=== PATIENT | female | born 2000 | race Caucasian/White ===

== ENCOUNTER → 2019-12-15 | Emergency (ER) | payer OTHER ==
[~2019-12-15] VITALS: Ht 175.3 cm; Wt 68.2 kg
[~2019-12-15] MED LIST: LORazepam 1 MG tablet PO ONE
[2019-12-15 01:23] LABS: BASOPHILS % (AUTO) 0.4 % (0-1); EOSINOPHILS # (AUTO) 0.1 X10'3 (0-0.9); EOSINOPHILS % (AUTO) 1.7 % (0-6); HEMATOCRIT 39.2 % (35.0-45.0); HEMOGLOBIN 13.6 g/dl (12.0-16.0); LYMPHOCYTES % (AUTO) 31.1 % (21-51); MEAN CORPUSCULAR HEMOGLOBIN 31.9 PG (27.0-31.0); MEAN CORPUSCULAR HGB CONC 34.7 g/dL (33.0-36.5); MEAN PLATELET VOLUME 8.1 FL (7.4-10.4); MONOCYTES # (AUTO) 0.4 X10'3 (0-0.9); MONOCYTES % (AUTO) 6.7 % (2-12); NEUTROPHILS # (AUTO) 3.9 X10'3 (1.8-7.7); NEUTROPHILS % (AUTO) 60.1 % (42-75); PLATELET COUNT 303 X10'3 (140-440); RED BLOOD COUNT 4.26 X10'6 (4.20-5.60); RED CELL DISTRIBUTION WIDTH 12.5 % (11.5-14.5); WHITE BLOOD COUNT 6.5 X10'3 (4.5-11.0)
[2019-12-15 01:38] LABS: ALANINE AMINOTRANSFERASE 17 U/L (12-78); ALBUMIN 4.2 G/DL (3.4-5.0); ALBUMIN/GLOBULIN RATIO 1.2 (1.1-1.5); ALKALINE PHOSPHATASE 74 IU/L (46-116); ANION GAP 9 (8-16); ASPARTATE AMINO TRANSFERASE 14 U/L (10-37); BILIRUBIN,TOTAL 0.4 MG/DL (0.1-1.0); BLOOD UREA NITROGEN 11 MG/DL (7-18); BUN/CREATININE RATIO 12.8 (6.6-38.0); CHLORIDE 106 MMOL/L (99-107); CREATININE 0.86 MG/DL (0.40-0.90); GLUCOSE 117 MG/DL (70-104); POTASSIUM 3.7 MMOL/L (3.5-5.1); SODIUM 142 MMOL/L (135-145); TOTAL CARBON DIOXIDE 27.2 MMOL/L (24-32); TOTAL PROTEIN 7.7 G/DL (6.4-8.2); eGFR 83 ML/MIN
[2019-12-15 01:43] LABS: D-DIMER < 0.19 MG/L FEU (0-0.50)
[2019-12-15 02:19] VITALS: BP 133/80
== END | disposition home or self-care (01) ==
LOC: ER 00:27
DX: R00.0 Tachycardia, unspecified (principal); R06.02 Shortness of breath
CPT/HCPCS: 36415; 71045; 80053; 83735; 83880; 84443; 84484; 85025; 85379; 93005; 99285

== ENCOUNTER 2020-12-03 13:50 | Outpatient (CLI) | payer BC ==
[2020-12-03 14:59] LABS: BASOPHILS % (AUTO) 0.2 % (0-1); EOSINOPHILS # (AUTO) 0.1 X10'3 (0-0.9); HEMATOCRIT 44.2 % (35.0-45.0); HEMOGLOBIN 14.7 g/dl (12.0-16.0); LYMPHOCYTES % (AUTO) 22.4 % (21-51); MEAN CORPUSCULAR HEMOGLOBIN 31.1 PG (27.0-31.0); MEAN CORPUSCULAR HGB CONC 33.2 g/dL (33.0-36.5); MEAN CORPUSCULAR VOLUME 93.7 FL (78-98); MEAN PLATELET VOLUME 8.7 FL (7.4-10.4); MONOCYTES # (AUTO) 0.5 X10'3 (0-0.9); MONOCYTES % (AUTO) 5.9 % (2-12); NEUTROPHILS # (AUTO) 6.4 X10'3 (1.8-7.7); NEUTROPHILS % (AUTO) 70.5 % (42-75); PLATELET COUNT 305 X10'3 (140-440); RED BLOOD COUNT 4.72 X10'6 (4.20-5.60); RED CELL DISTRIBUTION WIDTH 12.2 % (11.5-14.5); WHITE BLOOD COUNT 9.1 X10'3 (4.5-11.0)
[2020-12-03 15:06] LABS: HEMOGLOBIN A1C 5.6 % (4.5-6.2)
[2020-12-03 15:23] LABS: ALANINE AMINOTRANSFERASE 17 U/L (12-78); ALBUMIN 4.1 G/DL (3.4-5.0); ALBUMIN/GLOBULIN RATIO 1.1 (1.1-1.5); ALKALINE PHOSPHATASE 84 IU/L (46-116); ANION GAP 10 (8-16); ASPARTATE AMINO TRANSFERASE 13 U/L (10-37); BILIRUBIN,TOTAL 0.3 MG/DL (0.1-1.0); BLOOD UREA NITROGEN 7 MG/DL (7-18); BUN/CREATININE RATIO 8.1 (6.6-38.0); CALCIUM 9.1 MG/DL (8.5-10.1); CHLORIDE 106 MMOL/L (99-107); CHOL/HDL RATIO 2.1 (0.00-4.99); CHOLESTEROL 175 MG/DL (0-200); CREATININE 0.86 MG/DL (0.40-0.90); GLUCOSE 98 MG/DL (70-104); HDL CHOLESTEROL 84 MG/DL (35-60); LDL CHOLESTEROL 76 MG/DL (50-100); POTASSIUM 3.8 MMOL/L (3.5-5.1); SODIUM 143 MMOL/L (135-145); TOTAL CARBON DIOXIDE 27.3 MMOL/L (24-32); TOTAL PROTEIN 7.8 G/DL (6.4-8.2); TRIGLYCERIDES 77 MG/DL (20-135); eGFR 83 ML/MIN
[2020-12-05 11:18] LABS: LUTEINIZING HORMONE 11.2 mIU/mL (.); THYROXINE (T4) 9.5 ug/dL (4.5-12.0)
[2020-12-06 09:18] LABS: CLARITY,URINE CLEAR (Clear); COLOR,URINE YELLOW (Yellow); GLUCOSE, URINE NEGATIVE (Neg); KETONES,URINE NEGATIVE (Neg); LEUKOCYTE ESTERASE ,URINE NEGATIVE (Neg); NITRITES, URINE NEGATIVE (Neg); OCCULT BLOOD,URINE NEGATIVE (Neg); PROTEIN,URINE NEGATIVE (Neg); UA COLLECTION TYPE NON-SPECIFIED; UROBILINOGEN,URINE 0.2 E.U/dL (0.2-1.0)
[2020-12-09 08:36] LABS: TESTOSTERONE, FREE, DIRECT 2.2 pg/mL (0.0-4.2)
== END 2020-12-03 23:59 | disposition home or self-care (01) ==
LOC: LAB 13:50
PROVIDERS: ATTEND Family Medicine
DX: Z00.01 Encounter for general adult medical examination with abnormal findings (principal); E28.2 Polycystic ovarian syndrome; Z76.89 Persons encountering health services in other specified circumstances
CPT/HCPCS: 36415; 80053; 80061; 81003; 83001; 83002; 83036; 84402; 84403; 84436; 84443; 85025

== ENCOUNTER 2021-06-12 09:45 | Outpatient (CLI) | payer BC | END 2021-06-12 23:59 | disposition home or self-care (01) | LOC: RAD 09:45 | PROVIDERS: ATTEND Family Medicine | DX: N85.8 Other specified noninflammatory disorders of uterus (principal); E28.2 Polycystic ovarian syndrome | CPT/HCPCS: 76830; 76856; 93976 ==

== ENCOUNTER 2021-12-18 14:40 | Outpatient (CLI) | payer BC | END 2021-12-18 23:59 | disposition home or self-care (01) | LOC: RAD 14:40 | PROVIDERS: ATTEND Physician Assistant | DX: R09.81 Nasal congestion (principal); M95.0 Acquired deformity of nose; J34.89 Other specified disorders of nose and nasal sinuses | CPT/HCPCS: 70486 ==

== ENCOUNTER 2022-02-18 16:54 | Emergency (ER) | payer BC ==
[~2022-02-18] VITALS: Ht 175.3 cm; Wt 68.2 kg
[2022-02-18] MEDS ORDERED: bacitracin 15gm ointment TP ONE (17:00)
[2022-02-18] MEDS ORDERED: LIDOcaine 1% W/epiNEPHrine 1:200,000 10ml vial IJ ONE (17:00)
[2022-02-18 17:03] VITALS: BP 144/105
[2022-02-18] MEDS ORDERED: LIDOCAINE 1%/EPI 1:100,000 inj. 10 ML multi-dose vial IJ ONE (17:10)
== END 2022-02-18 17:47 | disposition home or self-care (01) ==
LOC: ER 16:55
DX: S01.112A Laceration without foreign body of left eyelid and periocular area, initial encounter (principal); X58.XXXA Exposure to other specified factors, initial encounter; Y93.89 Activity, other specified; Y92.89 Other specified places as the place of occurrence of the external cause; Y99.8 Other external cause status
CPT/HCPCS: 12011; 99282; A6449

== ENCOUNTER 2022-07-14 07:00 | Emergency (ER) | payer BC ==
[~2022-07-14] VITALS: Ht 175.3 cm; Wt 70.0 kg
[~2022-07-14 07:00] MED LIST changes: +ASCO100031 PO; +DESO1TAB PO; +ESCI5TAB PO; +ISOT30CA PO; -LORazepam 1 MG tablet PO ONE; +OMEG-5 PO; +ZINC50CA2 PO
[2022-07-14 07:03] VITALS: BP 139/88
[2022-07-14] MEDS ORDERED: dexamethasone sod phosphate 10mg/ml inj IM STA (07:20)
[2022-07-14] MEDS ORDERED: CLIN150C2 PO (07:23)
== END 2022-07-14 07:35 | disposition home or self-care (01) ==
LOC: ER 07:00
DX: J02.0 Streptococcal pharyngitis (principal); Z88.0 Allergy status to penicillin
CPT/HCPCS: 96372; 99283; J1100

== ENCOUNTER 2024-01-18 17:15 | Emergency (ER) | payer BC ==
[~2024-01-18] VITALS: Ht 175.3 cm; Wt 74.9 kg
[2024-01-18 17:27] VITALS: TEMP 99.4
[2024-01-18 17:49] LABS: BASOPHILS % (AUTO) 0.3 % (0-1); EOSINOPHILS # (AUTO) 0.1 X10'3 (0-0.9); EOSINOPHILS % (AUTO) 1.8 % (0-6); HEMATOCRIT 42.3 % (35.0-45.0); HEMOGLOBIN 14.2 g/dl (12.0-16.0); LYMPHOCYTES # (AUTO) 2.6 X10'3 (1.1-4.8); LYMPHOCYTES % (AUTO) 45.4 % (21-51); MEAN CORPUSCULAR HEMOGLOBIN 30.6 PG (27.0-31.0); MEAN CORPUSCULAR HGB CONC 33.5 g/dL (33.0-36.5); MEAN CORPUSCULAR VOLUME 91.5 FL (78-98); MEAN PLATELET VOLUME 8.5 FL (7.4-10.4); MONOCYTES # (AUTO) 0.4 X10'3 (0-0.9); MONOCYTES % (AUTO) 6.5 % (2-12); NEUTROPHILS # (AUTO) 2.7 X10'3 (1.8-7.7); PLATELET COUNT 336 X10'3 (140-440); RED BLOOD COUNT 4.63 X10'6 (4.20-5.60); RED CELL DISTRIBUTION WIDTH 12.6 % (11.5-14.5); WHITE BLOOD COUNT 5.8 X10'3 (4.5-11.0)
[2024-01-18 17:52] LABS: ALBUMIN 3.8 G/DL (3.4-5.0); ANION GAP 8 (8-16); BLOOD UREA NITROGEN 16 MG/DL (7-18); BUN/CREATININE RATIO 16.7 (10.0-20.0); CALCIUM 9.3 MG/DL (8.5-10.1); CHLORIDE 104 MMOL/L (99-107); CREATININE 0.96 MG/DL (0.40-0.90); GLUCOSE 105 MG/DL (70-104); POTASSIUM 3.8 MMOL/L (3.5-5.1); SODIUM 138 MMOL/L (135-145); TOTAL CARBON DIOXIDE 25.6 MMOL/L (24-32); eCRCL 94 ML/MIN; eGFR 71 ML/MIN
[2024-01-18 17:56] LABS: APTT 29 SECONDS (22-32); INR 0.9 INR; PROTHROMBIN TIME 9.9 SECONDS (9.0-12.0)
[2024-01-18 19:14] VITALS: BP 129/79; PULSE 82; RESP 18; O2SAT 99
== END 2024-01-18 19:21 | disposition home or self-care (01) ==
LOC: ER 17:16
DX: R41.0 Disorientation, unspecified (principal); I10 Essential (primary) hypertension; R79.1 Abnormal coagulation profile; Z88.0 Allergy status to penicillin; Z79.899 Other long term (current) drug therapy
CPT/HCPCS: 36415; 70450; 71045; 80048; 82948; 85025; 85610; 85730; 93005; 99285

== ENCOUNTER 2024-12-12 06:38 | Outpatient (CLI) | payer BC ==
[~2024-12-12 06:38] MED LIST changes: -ASCO100031 PO; +ASCO10004 PO; -DESO1TAB PO; -ZINC50CA2 PO; +ZINC50CA5 PO; +[UNRECOGNIZED DRUG - CODE] PO
[2024-12-12 07:11] LABS: MEAN PLATELET VOLUME 8.0 FL (7.4-10.4); RED CELL DISTRIBUTION WIDTH 12.6 % (11.5-14.5)
[2024-12-12 07:35] LABS: CHOL/HDL RATIO 2.3 (0.00-4.99); CREATININE 0.82 MG/DL (0.40-0.90); LDL CHOLESTEROL 96 MG/DL (50-100); TOTAL CARBON DIOXIDE 30.0 MMOL/L (24-32); eGFR 84 ML/MIN
[2024-12-13 13:13] LABS: PROGESTERONE 0.4 ng/mL (.); TESTOSTERONE, SERUM 69 ng/dL (13-71)
== END 2024-12-12 23:59 | disposition home or self-care (01) ==
LOC: LAB 06:38
PROVIDERS: ATTEND Physician Assistant
DX: E28.2 Polycystic ovarian syndrome (principal); F32.A Depression, unspecified; F41.1 Generalized anxiety disorder; Z00.00 Encounter for general adult medical examination without abnormal findings
CPT/HCPCS: 36415; 80053; 80061; 82306; 82672; 84144; 84402; 84403; 84439; 84443; 84481; 85025